=== PATIENT | female | born 1990 | race Caucasian/White ===

== ENCOUNTER 2017-05-02 21:48 | Emergency (ER) | payer SELFPAY ==
[~2017-05-02] VITALS: Ht 162.6 cm; Wt 77.1 kg
[2017-05-02 21:56] VITALS: BP 148/94
--- NOTE | 2017-05-02 23:12 | NUR ---
PT TAKEN TO BED 12
--- NOTE | 2017-05-02 23:20 | NUR ---
27/F CAME IN W C/O LAC BEHIND LT EAR. PT REPORTS HER SO THREW PERFUME BOTTLE AND CUT BEHIND HER EAR. DENIES HEADACHE/HEAD TRAUMA/LOC. LAC NOTED ON LT EAR WITH MINIMAL BLEEDING NOTED, REPORTS 7/10 PAIN, EAR NOTED WITH MODERATE SWELLING AND ERYTHEMA. NO OTHER INJURIES NOTED/REPORTED. DENIES PMH/RX/OTC
[2017-05-02] MEDS ORDERED: LIDOCAINE 1% ***ER ONLY *** 50 ML ONE (23:59)
--- NOTE | 2017-05-03 00:50 | NUR ---
Patient has a 3 cm laceration to BEHIND LT EAR Dr. DUDLEY applied sutures using sterile technique. Edges well approximated. Site cleansed with SW AND BETADINE. MINIMAL AMOUNT OF bleeding noted. Pt tolerated well.
[2017-05-03] MEDS ORDERED: LIDOCAINE 1% 500 MG/50 ML VIAL INJ SCH (01:10)
[2017-05-03] MEDS ORDERED: KETOROLAC 60 MG/2 ML VIAL IM ONE (01:10)
[2017-05-03] MEDS ORDERED: cefTRIAXone 1,000 MG in LIDOCAINE 1% ***ER ONLY *** 2.1 ML IM ONE (01:10)
[2017-05-03 02:05] VITALS: BP 144/92
--- NOTE | 2017-05-03 02:05 | NUR ---
Patient discharged with v/s stable. Written and verbal after care instructions given and explained. Patient alert, oriented and verbalized understanding of instructions. Ambulatory with to home. All questions addressed prior to discharge. ID band removed. Patient advised to follow up with PMD. Rx of MOTRIN 800MG given. Patient educated on indication of medication including possible reaction and side effects. Opportunity to ask questions provided and answered.
== END 2017-05-03 02:05 | disposition home or self-care (01) ==
LOC: MED 21:48
DX: S01.312A Laceration without foreign body of left ear, initial encounter (principal); W22.8XXA Striking against or struck by other objects, initial encounter; Y93.89 Activity, other specified; Y92.89 Other specified places as the place of occurrence of the external cause; Y99.8 Other external cause status
CPT/HCPCS: 12013; 96372; 99284; J0696; J1885; J2001

== ENCOUNTER 2019-06-21 21:25 | Emergency (ER) | payer OTHER ==
[~2019-06-21] VITALS: Ht 162.6 cm; Wt 86.2 kg
[2019-06-21 22:00] VITALS: BP 145/82
--- NOTE | 2019-06-21 22:03 | NUR ---
TO LOBBY A/W BED AMBULATORY
--- NOTE | 2019-06-21 23:24 | NUR ---
PT AMBULATED TO BED 12 WITH FAMILY MEMBER
[2019-06-21] MEDS ORDERED: SUMAtriptan 6 MG/0.5 ML VIAL SUBQ ONE (23:45)
--- NOTE | 2019-06-21 23:45 | NUR ---
29 Y/O FEMALE C/O HEADACHE, COUGH, AND LT EAR PAIN X 2 DAYS. PT STATES PRODUCTIVE SPUTUM GARCIA IN COLOR. RR EVEN AND UNLABORED, NO ACCESSORY MUSCLE USE. DENIES FEVER. DENIES N/V/D. DENIES EAR DRAINAGE. PT SITTING UPRIGHT IN BED POSITIONED FOR COMFORT. FRIEND AT BEDSIDE. VSS MEDHX: DENIES ALLERGIES: NKA
[2019-06-22] MEDS ORDERED: OSELTAMIVIR PHOSPHATE 75 MG CAP PO ONE (00:35)
--- NOTE | 2019-06-22 00:45 | NUR ---
PT DENIES HEADACHE AT THIS TIME.
[2019-06-22 00:57] VITALS: BP 145/82
--- NOTE | 2019-06-22 00:57 | NUR ---
Patient discharged with v/s stable. Written and verbal after care instructions given and explained. Patient alert, oriented and verbalized understanding of instructions. Ambulatory with steady gait. All questions addressed prior to discharge. ID band removed. Patient advised to follow up with PMD. Rx of TAMIFLU given. Patient educated on indication of medication including possible reaction and side effects. Opportunity to ask questions provided and answered.
== END 2019-06-22 00:57 | disposition home or self-care (01) ==
LOC: MED 21:25
DX: J09.X2 Influenza due to identified novel influenza A virus with other respiratory manifestations (principal); G43.909 Migraine, unspecified, not intractable, without status migrainosus
CPT/HCPCS: 71045; 81025; 87804; 96372; 99284; J3030; Q0092

== ENCOUNTER 2023-02-13 18:18 | Emergency (ER) | payer OTHER ==
[~2023-02-13] VITALS: Ht 162.6 cm; Wt 90.0 kg
[2023-02-13 18:30] VITALS: BP 143/92; PULSE 94; RESP 18; TEMP 98.6; O2SAT 98
[2023-02-13] MEDS ORDERED: IBUP-2213 PO (23:20)
[2023-02-13] MEDS ORDERED: LID5T TP (23:20)
[2023-02-13] MEDS ORDERED: CYCL-711 PO (23:23)
== END 2023-02-13 23:24 | disposition home or self-care (01) ==
LOC: MED 18:18
DX: S16.1XXA Strain of muscle, fascia and tendon at neck level, initial encounter (principal); S13.4XXA Sprain of ligaments of cervical spine, initial encounter; Z79.899 Other long term (current) drug therapy; Z79.1 Long term (current) use of non-steroidal anti-inflammatories (NSAID); Y08.89XA Assault by other specified means, initial encounter; Y93.89 Activity, other specified; Y92.89 Other specified places as the place of occurrence of the external cause; Y99.8 Other external cause status
CPT/HCPCS: 70360; 81025; 99283